=== PATIENT | female | born 1960 | race Caucasian/White ===

== ENCOUNTER 2017-02-05 15:38 | Emergency (ER) | payer MEDICARE, OTHER ==
[~2017-02-05] VITALS: Ht 167.6 cm; Wt 84.8 kg
[~2017-02-05 15:38] MED LIST: ATENOLOL100 MG PO; CETIRIZINE HCL10 MG PO; CHLORTHALIDONE25 MG PO; CLARITIN10 MG PO; FLUTICASONE PRO16 GM NAS; HYDROXYZINE PAM50 MG PO; IPRATROPIU0.2 MG/1 M INH; KLOR-CON M1010 MEQ PO; LAMOTRIGINE150 MG PO; METHYLPHENIDATE20 MG PO; OMEPRAZOLE20 MG PO; ONDANSETRON HCL4 MG PO; PROAIR HFA8.5 GM INH; TRAMADOL HCL50 MG PO
[2017-02-05] MEDS ORDERED: FAMCICLOVIR500 MG PO (16:01)
[2017-02-05] MEDS ORDERED: METHYLPREDNISOLO4 M1 PO (16:01)
== END 2017-02-05 16:10 | disposition home or self-care (01) ==
LOC: ED 15:38
DX: G51.0 Bell's palsy (principal); F31.9 Bipolar disorder, unspecified; F20.9 Schizophrenia, unspecified; F17.200 Nicotine dependence, unspecified, uncomplicated; Z90.710 Acquired absence of both cervix and uterus; Z90.49 Acquired absence of other specified parts of digestive tract; Z88.0 Allergy status to penicillin; Z88.6 Allergy status to analgesic agent; Z79.899 Other long term (current) drug therapy; Z79.51 Long term (current) use of inhaled steroids; Z79.52 Long term (current) use of systemic steroids
CPT/HCPCS: 99283

== ENCOUNTER 2017-04-02 07:30 | Emergency (ER) | payer MEDICARE, OTHER ==
[~2017-04-02] VITALS: Ht 167.6 cm; Wt 84.8 kg
[~2017-04-02 07:30] MED LIST changes: +FAMCICLOVIR500 MG PO; +METHYLPREDNISOLO4 M1 PO
== END 2017-04-02 10:07 | disposition home or self-care (01) ==
LOC: ED 07:30
DX: K64.4 Residual hemorrhoidal skin tags (principal); F41.9 Anxiety disorder, unspecified; F31.9 Bipolar disorder, unspecified; F20.9 Schizophrenia, unspecified; F17.200 Nicotine dependence, unspecified, uncomplicated; Z90.710 Acquired absence of both cervix and uterus; Z90.49 Acquired absence of other specified parts of digestive tract; Z98.890 Other specified postprocedural states; Z88.6 Allergy status to analgesic agent; Z88.0 Allergy status to penicillin; Z86.19 Personal history of other infectious and parasitic diseases; Z79.899 Other long term (current) drug therapy
CPT/HCPCS: 99284

== ENCOUNTER 2019-01-18 00:28 | Inpatient (IN) | payer MEDICARE, OTHER ==
[~2019-01-18] VITALS: Ht 167.6 cm; Wt 71.4 kg
--- OUTSIDE RECORDS SUMMARY | 2019-01-18 00:32 | XMS ---
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 ECaitlyn VISIT COUNT (12 MO.) [address] [facility] TOTAL 1 NOTE: Visits indicate total known visits. ED/UCC VISIT TRACKING (12 MO.) 01/18/2019 00:[address] [facility] [place] TYPE: Emergency COMPLAINT: - DIFFICULTY BREATHING INPATIENT VISIT TRACKING (12 MO.) No inpatient visits to display in this time frame [id number]
--- NOTE | 2019-01-18 05:00 | NUR ---
pt ARRIVED ON FLOOR. pt RESTING. FELL ASLEEP MULTIPLE TIMES DURING ASSESSMENT, REPORTED NOT SLEEPING MUCH PRIOR. REPORTED SOB THAT WAS IMPROVED FROM WHEN SHE CAME IN. pt STATED "I CAN FEEL NOT HAVING A DRINK, THIS IS PRETTY LONG TO GO WITHOUT ALCOHOL" LAST DRINK 2200. COMPLAINED OF PAIN POINTING TO ABD. STATED "IT'S FROM THE COUGHING" RATED 8/10. EDUCATED ON USING CALL LIGHT. IVF AND IV ABX INFUSING (SEE MAR). CALL LIGHT WITHIN REACH.
--- NOTE | 2019-01-18 05:10 | NUR ---
PT ARRIVED TO THE FLOOR AT 0443 VIA STRETCHER. VS STABLE AND PT IS ON 2.5 LNC. SHE IS TUCKED IN AND ORIENTED TO THE ROOM. TELE IS IN PLACE. HISTORY WAS REVIEWED WITH PT. SHE SMOKES AND WOULD LIKE NICOTINE, WILL ENTER NIO ORDERS. PT HAS FRESH WATER AT BEDSIDE AND PT DENIES FURTHER NEEDS AT THIS TIME. CALL LIGHT IS WITHIN REACH.
[2019-01-18] MEDS ORDERED: K-TAB ER20 MEQ PO (05:37)
--- NOTE | 2019-01-18 06:21 | NUR ---
pt RECENTLY ADMITTED TO FLOOR. pt RESTING, COMPLAINS OF PAIN TO ABD "FROM MY COUGHING." STATED "THIS IS PRETTY LONG TO GO WITHOUT ALCOHOL" LAST DRINK 219901/17/19. IVF INFUSING, IV ABX. USES CANE "OCCASSIONALLY" AT BASELINE. REPORTS SOB "IT'S MUCH BETTER THAN WHEN I CAME IN" 2L O2 VIA NC. HAS NOT USED CALL LIGHT.
--- NOTE | 2019-01-18 07:32 | NUR ---
PT REUESTED NO BEDSIDE REPORT PREFERRING TO SLEEP. SHE IS RESTING EYES CLOSED [address] BREATHING EVEN AND UNLABORED. IV INFUSING, CALL LIGHT AND NEEDED ITEMS AT BEDSIDE
--- NOTE | 2019-01-18 10:05 | NUR ---
PATIENT SITTING UP IN BED TAKING BREAKFAST. RN IN ROOM. VITAL SIGNS AND I&O DONE. CALL LIGHT WITHIN REACH. NO OTHER NEEDS AT THIS TIME
--- NOTE | 2019-01-18 10:21 | NUR ---
PT AWAKENED FOR MORNING MEAL EATS 100%. COOPERATIVE AND FRIENDLY. ETOH CONCERNS ADRESSED WITH DOCTOR. REFUSES UP TO THE CHAIR. CALL LIGHT AT BEDSIDE WITH OTHER NEEDED ITEMS
--- NOTE | 2019-01-18 10:58 | NUR ---
Provided pt with beer per doc order. Pt reports she "feels shaky", and drinks "alot of alcohol". Fine shaking noted in hands. Dr. Lopez aware. Will continue to monitor pt.
--- NOTE | 2019-01-18 11:09 | NUR ---
IN TO DO PTS INITIAL CASE MANAGEMENT ASSESSMENT. PT ABLE TO ANSWER ALL QUESTIONS. DENIES NEEDS.
--- NOTE | 2019-01-18 11:14 | NUR ---
DR SOTO IN TO ASSESS PT, SHE IS ALERT AND COOPERATIVE. ETOH ISSUE DISCUSSED BEER PROVIDED. PT IS DRINKING AT THIS TIME, NICOTINE PATCHES IN PLACE. SHE STATES THIS HELPS. PT IS ALERT AND ORIENTED, HANDS ARE SHAKING SLIGHTLY, NO S/S OF DISTRESS. PT DENIES FURTHER NEEDS
--- NOTE | 2019-01-18 13:10 | NUR ---
PATIENT RESTING IN BED. PATIENT GOES TO USE BATHROOM. STAND BY ASSIST. PATIENT BACKS TO BED. CALL LIGHT WITHIN REACH. NO OTHER NEEDS AT THIS TIME
--- NOTE | 2019-01-18 13:55 | NUR ---
PATIENT RESTING IN BED. VITAL SIGNS AND I&O DONE. CALL LIGHT WITHIN REACH. NO OTHER NEEDS AT THIS TIME
--- NOTE | 2019-01-18 14:04 | NUR ---
PT HAD COMPANY FOR MOST OF THE LATE MORNING. SHE HAS HAD 4 BEERS, VERY LITTLE TREMOR AT THIS TIME. C/O HEADACHE TYLENOL GIVEN. DRY COUGH CONTINUES NO PRODUCTION. BREATHING EVEN AND UNLABORED [address] 2LPM
--- NOTE | 2019-01-18 14:09 | EKG ---
[facility] [address] [place], [place] [address] Signed Normal sinus rhythm Rightward axis Nonspecific ST and T wave abnormality Abnormal ECG No previous ECGs available Confirmed by YULISA SOTO DO ([id number]) on 01/18/2019 2:09:12 PM Electronically Signed By: YULISA SOTO DO 01/18/19 1409 PATIENT NAME: ALESSIO HOLLOWAY VONNIE Electrocardiogram DATE OF : 64 PHYSICIAN: YULISA SOTO DO REPORT #: [id number] REPORT IS CONFIDENTIAL AND NOT TO BE RELEASED WITHOUT AUTHORIZATION
[2019-01-18] MEDS ORDERED: ADVAIR 250-501 EACH INH (15:31)
[2019-01-18] MEDS ORDERED: NORVASC10 MG PO (15:32)
--- NOTE | 2019-01-18 16:08 | NUR ---
PT IN ROOM COUGHING AT THIS TIME. PER ICU, PT'S HEART RATE PER TELE INCREASED TO MID 150/BPM. PT REPORTS INCREASED COUGHING FOR LAST SEVERAL MINUTES. PENDING DR. SOTO'S ORDER FOR COUGH SUPPRESSANT. VS TAKED; 155/54, P104, M77, 02 SAT LEVEL 95% ON RA.
--- NOTE | 2019-01-18 16:16 | NUR ---
PT COUGHING AND COUGHING, C/O HEAD AND STOMACHE PAIN. DR SOTO IN TO CHECK ON HER, WRITES FOR TESSOLON PEARS AND IBUPROFEN. PT HANDS SHAKEY AGAIN, SHE REPORTS SWEATING, APPEARS A LITTLE AGITATED. COOL CLOTH PROVIDED, BEER FROM KITCHEN, PEARLS AND IBUPROFEN GIVEN. DISCUSSED S/S OF DT'S SHE STATES SHE HAS BEEN THROUGH THEM 5 OR 6 TIMES ABLE TO VERBALIZE S/S AGREES TO NOTIFY STAFF OF NEEDS
--- NOTE | 2019-01-18 16:34 | NUR ---
Dr. Lopez aware of pt's heart rate increase to the mid 150bpm per tele. No new orders. Pt's heart rate immediately returned to 109-115bpm range. Will continue to monitor.
--- NOTE | 2019-01-18 19:04 | NUR ---
IN ROOM FOR REPORT, PT IS AWAKE IN BED. SHE DENIES NEEDS AT THIS TIME. CALL LIGHT IS WITHIN REACH.
--- NOTE | 2019-01-18 19:18 | NUR ---
CHARGE NURSE REPORT RECEIVED FROM DORON. PT IN BED, NO NEEDS AT THIS TIME.
--- NOTE | 2019-01-18 20:27 | NUR ---
IN ROOM TO ADMINISTER MEDICATIONS AND ASSESS PT. SHE REPORTS 8/10 HEADACHE AT THIS TIME. CIWA SCORE IS 13 AND SHE HAS A BEER AT BEDSIDE. SHE HAS EX WHEEZES AND IS SITTING UP IN BED AT THIS TIME. SHE STATES SHE HAS SOME MUSCLE/SHOULDER PAIN WHICH IS WORSE WITH COUGHING. TYLENOL GIVEN FOR 8/10 HEADACHE. PT CONTINUES TO HAVE A DRY COUGH AND IS HAVING TROUBLE RELAXING. WILL TALK WITH DR SOTO ABOUT OTHER COUGH MEDICINE. PT DENIES FURTHER NEEDS. CALL LIGHT IS CLOSE.
--- NOTE | 2019-01-18 20:37 | NUR ---
SPOKE WITH DR SOTO ABOUT ADDING COUGH MEDICINE. VORBC AND ENTERED. HE WILL SPEAK WITH PT ABOUT CIWA AND ALCOHOL FOR THE NIGHT.
--- NOTE | 2019-01-18 21:37 | NUR ---
BRIELLE NORIEGA ADVISED THIS RN THAT PT IS FEELING MORE AGITATED. ASSESSED PT AND CIWA AT THIS TIME IS 17. ADMINISTERED 5MG ORAL VALIUM AND COUGH MEDS. PT DENIES FURTHER NEEDS AT THIS TIME WILL REASSESS IN 1 HOUR. CALL LIGHT IS CLOSE.
--- NOTE | 2019-01-18 22:25 | NUR ---
REASSESSED PT, VVS. CIWA SCORE IS DOWN. PT CONTINUES TO HAVE DRY COUGH. ADMINISTERED ANOTHER LOZENGE PER PT REQUEST. SHE DENIES FURTHER NEEDS AT THIS TIME. CALL LIGHT IS WITHIN REACH.
--- NOTE | 2019-01-18 23:45 | NUR ---
VS ENTERED AND CIWA COMPLETE. PT REPORTS HEADACHE HAS IMPROVED ALOT. CIWA IS AT 7 AT THIS TIME. SHE DENIES NEEDS. CALL LIGHT IS CLOSE.
--- NOTE | 2019-01-19 01:00 | NUR ---
CIWA COMPLETE. PT REQUIRED NEW IV START OLD ONE INFILTRATED. PT DENIES NEEDS AT THIS TIME. CALL LIGHT IS CLOSE.
--- NOTE | 2019-01-19 02:00 | NUR ---
PT'S HEADACHE IS 8/10 AND CIWA SCORE INCREASED TO 13 AGAIN. VALIUM ADMINISTERED ANLONG WITH ROBITUSSIN AND LOZENGES. PT DENIES FURTHER NEEDS AT THIS TIME. CALL LIGHT IS WITHIN REACH.
--- NOTE | 2019-01-19 03:00 | NUR ---
CIWA AND VS COMPLETE. VS STABLE. PT IS REPORTING A DECREASE IN SYMPTOMS. SHE DENIES NEEDS AT THIS TIME. CALL LIGHT IS WITHIN REACH.
--- NOTE | 2019-01-19 04:06 | NUR ---
PT'S VS HAVE BEEN STABLE ALL NIGHT. HER COUGH HAS BEEN KEEPING HER AWAKE. SHE IS RESTING AT THIS TIME WITH EYES CLOSED, RR IS EVEN AND NONLABORED. CIWA ASSESSED BUT HOLDING VS AT THIS TIME. CALL LIGHT IS CLOSE.
--- NOTE | 2019-01-19 06:10 | NUR ---
CIWA 0 AT THIS TIME. PT IS RESTING WITH EYES CLOSED, RR IS EVEN AND NONLABORED ON 2LNC. CALL LIGHT IS CLOSE.
--- NOTE | 2019-01-19 07:48 | NUR ---
Pt appears to be sleeping at this time, resp even and non labored. Personal supplies and call light within reach.
--- NOTE | 2019-01-19 09:16 | NUR ---
PATIENT SITTING UP IN BED. RN IN ROOM. VITAL SIGNS AND I&O DONE. PATIENT COMPLAIN ABOUT HER BREAKFAST. PATIENT'S BREAKFAST ORDERED AGAIN. CALL LIGHT WITHIN REACH. NO OTHER NEEDS AT THIS TIME
--- NOTE | 2019-01-19 10:53 | NUR ---
CEPACOL PO ADMIN FOR SORE THROAT.
--- NOTE | 2019-01-19 12:47 | NUR ---
PT SITTING UP IN BED WATCHING TV, RESP EVEN AND NON LABORED. PT REPORTS ONGOING HEADACHE THIS SHIFT. TYLENOL IN USE FOR THIS. CIWA ASSESSMENTS ONGOING. PT APPEARS TO HAVE LESS SHAKING TODAY COMPARED TO YESTERDAY. PT REPORTS SHE IS "DOING OK" TODAY. ENCOURAGED GOOD PO INTAKE AND PROPER DIET. PT RECEPTIVE TO PLAN OF CARE. NO NEEDS AT THIS TIME. ENCOURAGED PT TO CALL STAFF WHEN NEEDED.
--- NOTE | 2019-01-19 13:26 | NUR ---
PT SHAKING AND SWEATING. CIWA SCORE OF 10 AT THIS TIME. WILL ADMIN VALIUM PER PROTOCOL.
--- NOTE | 2019-01-19 13:28 | NUR ---
ADMIN VALIUM 10MG PO PER CIWA PROTOCOL. PT REPORTING HAVING A HARD TIME WITH ALCOHOL WITHDRAWAL. SEE PREVIOUS NOTE FOR FURTHER DETAILS.
--- NOTE | 2019-01-19 13:36 | NUR ---
PATIENT SITTING UP IN BED. VITAL SIGNS AND I&O DONE. CALL LIGHT WITHIN REACH. NO OTHER NEEDS AT THIS TIME
--- NOTE | 2019-01-19 14:38 | NUR ---
Pt states "doing well" at this time, no shaking noted at this time. Pt has friends at the bedside. VS are stable. Pt has no needs at this time. Personal supplies within reach.
--- NOTE | 2019-01-19 16:17 | NUR ---
Pt appears to be sleeping, eyes closed, resp even and non labored. No tremors noted. Pt appears very calm and relaxed. RR16 per min. Cough has calmed down.
--- NOTE | 2019-01-19 18:05 | NUR ---
PATIENT RESTING IN BED. VITAL SIGNS AND I&O DONE. CALL LIGHT WITHIN REACH. NO OTHER NEEDS AT THIS TIME
--- NOTE | 2019-01-19 19:00 | NUR ---
SHIFT REPORT RECEIVED FROM DAYSHIFT LEYLA SAL AT BEDSIDE. PT RESTING IN BED, DROWSY, BUT AWAKENS EASILY. REQUEST THROAT LOZENGE AT THIS TIME, WILL GIVE WITH EVENING MEDS. PT DENIES ADDITIONAL NEEDS, CALL LIGHT IN REACH.
--- NOTE | 2019-01-19 19:36 | NUR ---
ROUNDED CHARGE. PATIENT IS RESTING IN BED. PANKAJ RN IN ROOM AND SPEEDOMETER INSPECTOR IN ROOM TO ASSES PATIENT AND TAKE VITALS. PATIENT DENIES ANY COMMENTS, QUESTIONS, OR CONCERNS. NO NEEDS NOTED. CALL LIGHT IN REACH.
--- NOTE | 2019-01-19 19:45 | NUR ---
ASSESSMENT COMPLETE, VSS, PT ON RA, RR WNL. PT A/OX4. CIWA SCORE OF 9. CHIEF COMPLAINT OF HEADACHE, INTERMITTENT NAUSEA, AND MINIMAL AGITATION/TREMORS. PT DENIES WANT FOR NAUSEA MEDICATION. 10 MG PO VALIUM ADMINISTERED. PT SALINE LOCKED, IV SITE FLUSHED AND IS WNL. PRN THROAT LOZENGE AND PRN TYLENOL ADMINISTERED. NO ADDITIONAL NEEDS, CALL LIGHT IN REACH. ROOM DARK TO ENCOURAGE SLEEP.
--- NOTE | 2019-01-19 21:00 | NUR ---
PT RESTING IN BED, RR 20, 92% ON RA. NO DISTRESS NOTED. PT APPEARS COMFORTABLE. HEADACHE RESOLVED PER PT. VSS. NO NEEDS, CALL LIGHT IN REACH.
--- NOTE | 2019-01-19 23:00 | NUR ---
CIWA COMPLETE, RESULT OF 1 DUE TO REPORTS OF SWEATING, NON VISIBLE. PT DENIES ADDITIONAL NEEDS, UP SBA WITH HELP FROM BRIELLE MENDOZA.
--- NOTE | 2019-01-19 23:10 | NUR ---
V/S TAKEN AND RECORDED. ICE WATER, COLA AND COFFEE PROVIDED.
--- NOTE | 2019-01-20 00:10 | NUR ---
SCHEDULED NEB TREATMENT GIVEN BY THIS RN PER PT REQUEST. LUNG SOUNDS CLEAR, MINIMAL EXPIRATORY WHEEZES NOTED, O2 SAT 94% ON RA, HR 95, AFTER TREATMENT. COFFEE WITH HONEY PROVIDED PER PT REQUEST. NO ADDITIONAL NEEDS, CALL LIGHT IN REACH.
--- NOTE | 2019-01-20 01:15 | NUR ---
CIWA SCORE OF 8, 10 MG PO VALIUM ADMINISTERED. PRN TYLENOL ALSO GIVEN FOR PAIN R/T HEADACHE. VSS. NO ADDITIONAL NEEDS, CALL LIGHT IN REACH.
--- NOTE | 2019-01-20 02:30 | NUR ---
AT 1999, VALIUM PULLED. PYXIS ERROR CAUSED TWO 10MG/2ML VALIUM TO BE PULLED, NOT ONE. THE RN CANCELLED THE SECOND VALIUM AND ONLY PULLED ONE TOTAL. HOWEVER, THE IV VALIUM WAS NOT GIVEN, BUT INSTEAD THE PO OPTION WAS PULLED AND GIVEN. THE IV VALIUM PULLED COULDN'T BE WASTED IN PYXIS BY WAS WASTED BY THIS RN IN CONTAINER, VERIFIED BY PATTERN DUPLICATOR. DISCREPANCY WAS CAUSED, BUT RESOLVED IN PYXIS BY THIS RN AND PATTERN DUPLICATOR. RETAIL KEY HOLDER AND PHARMACY AWARE.
--- NOTE | 2019-01-20 02:36 | NUR ---
PT RESTING IN BED, EYES OPEN AND WATCHING TLEVISION. CIWA SCORE OF 2, C/C AT THIS TIME IS HEADACHE AND MINIMAL SWEATING. RR WNL, NO DISTRESS NOTED. PT DENIES NEEDS AND STATES, "I FEEL BETTER NOW". CALL LIGHT IN REACH.
--- NOTE | 2019-01-20 03:34 | NUR ---
PT RESTING IN BED, EYES CLOSED. RR EVEN AND UNLABORED. NO VISIBLE TREMORS NOTED. PT APPEARS COMFORTABLE AT THIS TIME, CALL LIGHT IN REACH.
--- NOTE | 2019-01-20 04:30 | NUR ---
CIWA SCORE OF 1, DUE TO MINIMAL HEADACHE. PT WAS RESTING WITH EYES CLOSED WHEN THIS RN ENTERED ROOM. VSS, PT ON RA, RR WNL. NO NEEDS AT THIS TIME. CALL LIGHT IN REACH.
--- NOTE | 2019-01-20 05:38 | NUR ---
PT RESTING IN BED, AWAKE AND WATCHING TELEVISION. NO NEEDS, CALL LIGHT IN REACH.
--- NOTE | 2019-01-20 05:43 | NUR ---
PT SLEPT ON AND OFF THIS SHIFT. HIGHEST CIWA SCORE IN SHIFT WAS 9, BIGGEST COMPLAINTS INCLUDED HEADACHE, TREMORS, AND SWEATING. 10 MG PO VALIUM GIVEN X2 THIS SHIFT. VS REMAINED STABLE ALL NIGHT. PRN TYLENOL GIVEN FOR HEADACHE. A/OX4, USES CALL LIGHT APPROPERIATELY. REGULAR DIET, TOLERATING WELL. VOIDING QS. NO BM THIS SHIFT.
--- NOTE | 2019-01-20 06:47 | NUR ---
THIS RN IN ROOM TO COLLECT VS AND COMPLETE CIWA ASSESSMENT. PT RESTING IN BED, EYES CLOSED WHEN ENTERING ROOM. SCORE OF 4 DUE TO NAUSEA AND HEADACHE. PT DECLINES NAUSEA MEDICATION. NO ADDITIONAL NEEDS. CALL LIGHT IN REACH.
--- NOTE | 2019-01-20 07:35 | NUR ---
PT APPEARS TO BE SLEEPING, EYES CLOSED. RESP EVEN AND NON LABORED. NO NOTABLE DISTRESS. PERSONAL SUPPLIES AND CALL LIGHT WITHIN REACH. NO NEEDS.
--- NOTE | 2019-01-20 08:40 | NUR ---
PT SLEEPING AT THIS TIME, RESP EVEN AND NON LABORED. PT'S OXYGEN SAT LEVEL IS 92% ON RA.
--- NOTE | 2019-01-20 10:40 | NUR ---
PT REPORTS HAVING A HARD TIME THIS MORNING. RR20 BPM, RESP EVEN AND NON LABORED. PT APPEARS ANXIOUS, AGITATED AND HAS NOTABLE SWEATING AND TREMORS. PT STATES SHE "WANTS TO GO HOME". ENCOURAGED PT TO WAIT FOR PROVIDER TO SEE HER. ODETTE COMPLETED, PT GIVEN VALIUM 10MG PO AT THIS TIME. CALL LIGHT WITHIN REACH OF PT. NO NEEDS AT THIS TIME.
--- NOTE | 2019-01-20 11:01 | NUR ---
IV NO LONGER PATENT, NEW IV TO BE PLACED. SOLUMEDROL AND KCL IV TO BE STARTED ONCE A NEW IV IS PLACED.
--- NOTE | 2019-01-20 11:18 | NUR ---
PT SITTING UP IN BED, UPSET AND CRYING. PT REPORTS SHE'S UPSET D/T "WANTING TO GO HOME". ECNOURAGED PT TO BE POSITIVE, SHE IS HERE TO BE TREATED FOR HER MEDICAL PROBLEMS; PT RECEPTIVE TO THIS AFTER TALKING. CIWA; RR 20, EVEN AND NON LABORED. PT REPORTS ONGOING HEADACHE; TYLENOL IN USE. RECENT ADMIN OF VALIUM PER PROTOCOL. WILL CONTINUE TO MONITOR.
--- NOTE | 2019-01-20 12:04 | NUR ---
TESSALON TRINO 100MG PO FOR COUGH.
--- NOTE | 2019-01-20 12:24 | NUR ---
PT APPEARS TO BE LESS ANXIOUS. FAMILY AT BEDSIDE VISITING. RESP EVEN AND NON LABORED. KCL IV INFUSING AT THIS TIME. PT EATING LUNCH. NO NEEDS AT THIS TIME. PERSONAL SUPPLIES AND CALL LIGHT WITHIN REACH.
--- NOTE | 2019-01-20 14:41 | NUR ---
PT SITTING UP IN BED AT THIS TIME, RESP EVEN AND NON LABORED. PT APPEARS CALM, VERY MILD TREMORS, NO SWEATING NOTED. PT REPORTS "FEELING BETTER". RESP EVEN AND NON LABORED. PT HAS NO NEEDS AT THIS TIME. PERSONAL SUPPLIES AND CALL LIGHT WITHIN REACH.
--- NOTE | 2019-01-20 16:37 | NUR ---
IV KCL COMPLETE. PT AWAKE, A&OX3. NO NOTABLE TREMORS OR SWEATING AT THIS TIME. CEPACOL ADMIN FOR SORE THROAT. RESP EVEN AND NON LABORED.
--- NOTE | 2019-01-20 19:05 | NUR ---
BEDSIDE REPORT RECEIVED FROM LEYLA SAL. PT RESTING IN BED WITH EYES CLOSED. BREATHING EQUAL AND UNLABORED. SPO2 95% ON WALL PULSE OXIMETRY. LIGHTS OFF IN ROOM.
--- NOTE | 2019-01-20 20:29 | NUR ---
REGULAR COLA AND ICE PROVIDED. PATIENT REQUESTED SOMETHING FOR COUGHING AND SHAKEY. PRIMARY RN NOTIFIED.
--- NOTE | 2019-01-20 21:11 | NUR ---
CALL LIGHT ANSWERED, PT C/O ANXIETY, TREMORS, RENDON. CIWA SCORE 10. PRN VALIUM ADMINISTERED PER ORDERS. ASSESSMENT COMPLETE. VSS. PRN TYLENOL ADMINISTERED FOR RENDON, PRN COUGH MEDICATION. PT RESTING IN BED. RT BASIA IN ROOM TO ADMINISTER SCHEDULED NEB TREATMENTS. WHEEZES HEARD THROUGHOUT ALL LOBES, DRY COUGH PRESENT. PT DENIES TOILETING NEEDS. PO FLUIDS PROVIDED. CALL LIGHT IN REACH. PT VERBALIZES UNDERSTANDING TO USE CALL LIGHT BEFORE GETTING OUT OF BED. ALERT AND ORIENTED X 4.
--- NOTE | 2019-01-20 21:48 | NUR ---
PT REQUESTED AND RECEIVED NICOTINE LOZENGE. ALL PERSONAL ITEMS PLACED WITHIN REACH.
--- NOTE | 2019-01-20 22:15 | NUR ---
FRUIT CUP GIVEN TO PT. SITTING IN BED. NO ADDITIONAL REQUESTS. CALL LIGHT IN REACH.
--- NOTE | 2019-01-20 23:51 | NUR ---
CHECKED ON PT. RESTING IN BED WITH EYES CLOSED. RR 18. BREATHING UNLABORED.
--- NOTE | 2019-01-21 01:00 | NUR ---
PT SLEEPING, AWAKENS TO VOICE. SBA TO RESTROOM FOR VOID AND BACK TO BED. CIWA SCORE 9. VSS. ASSESSMENT COMPLETE. SCHEDULED MEDICATION AND PRN VALIUM ADMINISTERED, SEE EMAR. CALL LIGHT IN REACH.
--- NOTE | 2019-01-21 03:20 | NUR ---
CHECKED ON PT. RESTING IN BED WITH EYES CLOSED. BREATHING EQUAL AND UNLABORED.
--- NOTE | 2019-01-21 04:45 | NUR ---
PT SLEEPING. AWAKENS TO VOICE. VSS. CIWA 8, PRN VALIUM ADMINISTERED PER EMAR. PT "IRRITATED", DIAPHORETIC, C/O 8/10 RENDON. PRN TYLENOL ADMINISTERED. DENIES TOILETING NEEDS. ICE WATER PROVIDED. CALL LIGHT IN REACH.
--- NOTE | 2019-01-21 05:51 | NUR ---
PT RESTED WELL THIS SHIFT. SBA TO RESTROOM FOR QS VOIDS. USING CALL LIGHT APPROPRIATELY. C/O RENDON THROUGHOUT SHIFT, PRN TYLENOL ADMINISTERED. CIWA ASSESSMENTS Q4H. VSS. IV SALINE LOCKED.
--- NOTE | 2019-01-21 07:11 | NUR ---
REPORT RECEIVED. FROM DOROTHEA MAYER. PT RESTING WITH EYE CLOSED. RESPIRATIONS EVEN AND UNLABORED. CALL LIGHT WITHIN REACH.
--- NOTE | 2019-01-21 07:56 | NUR ---
MORNING ASSESSMENT AND MEDICATION DUE. PT CALL LIGHT ON. SBA UP TO RESTROOM. PT REPROTS HEADACHE, NAUSEA, TREMORS NOTED. PT STATES "I AM REALLY IRRITABLE AND I HAVE A HEADACHE." CIWA SCORE = 9. MEDICATION GIVEN PER MD ORDER. SBA UP TO CHAIR. PT BEGINS COUGHING AND HAS TROUBLE STOPPING. WHEEZES NOTED THROUGHOUT LUNGS. CEPACOL LOSENGE GIVEN WITH GOOD RESULTS. MEDICATIONS GIVEN. PT EATING BREAKFAST. NO ADDITIONAL REQUESTS OR COMPLAINTS. CALL LIGHT WITHIN REACH.
--- NOTE | 2019-01-21 10:35 | NUR ---
THIS RN TO ROOM TO CHECK ON PT. PT SITTING UP IN BED TALKING ON PHONE. PT CONTINUES TO REPORT HEADACHE. PT DENIES NAUSEA. NO TREMBLING NOTED. FLU VACCINE GIVEN. MEDICATION GIVEN. COFFEE REFILLED PER PT REQUEST. NO ADDITIONAL REQUESTS OR COMPLAINTS AT THIS TIME. CALL LIGHT WITHIN REACH.
[2019-01-21] MEDS ORDERED: DOXYCYCLINE HY100 MG PO (11:47)
[2019-01-21] MEDS ORDERED: NICOTINE PATCH1 EAC1 TD (11:47)
[2019-01-21] MEDS ORDERED: DELTASONE20 MG PO (11:50)
--- NOTE | 2019-01-21 11:52 | NUR ---
MD TO BEDSIDE FOR ROUNDS. NOON ASSESSMENT DONE. PT CONTINUES TO BE WHEEZY AND COUGHING. MEDICATION GIVEN. SMOKING CESEATION AND ALCOHOL WITHDRAWL EDUCATION DONE. PT VERBALIZES UNDERSTANDING AND WANTS TO SIGN UP FOR SMOKING CESEATION HOTLINE. PAPERWORK COMPLETED. PT CONTINUEST O REPROT 11/20 HEADACHE. CIWA SCORE = 6, NO MEDICATION NEEDED AT THIS TIME. PT UP TO DRESS SELF. ANTICIPATING DISCHARGE, CALL LIGHT WITHIN REACH.
--- NOTE | 2019-01-21 12:24 | NUR ---
PT APPEARS TO BE RESTING, AWAKENS EASILY TO MY VOICE. NOTICED SLIGHT TREMORS IN PT SHE SAT UP IN BED. SHE SEEMED PLEASANT, MENTIONED THAT SHE HOPES TO BE DC'D TODAY. PT ON RA, APPEARS TO BREATH UNLABORED AT THIS MOMENT. SHE ALSO THANKED ME FOR COMING IN. EXTENDED A BLESSING,WILL FOLLOW NEEDED
--- NOTE | 2019-01-21 12:46 | NUR ---
PT READY FOR DISCHRAGE. PT HAS SPOKEN WITH PHARMACIST REGARDING MEDICATIONS AND STATES HER QUESTIONS HAVE BEEN ANSWERED. VITALS TAKEN. PIV DC'D PER PROTOCOL. DISCHARGE INSTRUCTIONS REVIEWED WITH PT. PT VERBALIZES UNDERSTANDING AND STATES HER QUESTIONS HAVE BEEN ANSWERED. PT TRANSFERES SELF TO WHEELCHAIR. ALL PERSONELL BELONGINS WITH PT. PT STATES SHE HAS NO ADDITIONAL QUESTIONS, CONCERNS, OR REQUESTS. PT WHEELED FROM MED SURG.
== END 2019-01-21 12:50 | disposition home or self-care (01) | DRG 191 ==
LOC: ED 00:28 → MS 00:30
PROVIDERS: ADMIT Student in an Organized Health Care Education/Training Program
DX: J44.1 Chronic obstructive pulmonary disease with (acute) exacerbation (principal); E87.1 Hypo-osmolality and hyponatremia; F10.239 Alcohol dependence with withdrawal, unspecified; E87.6 Hypokalemia; J01.11 Acute recurrent frontal sinusitis; B96.89 Other specified bacterial agents as the cause of diseases classified elsewhere; F17.210 Nicotine dependence, cigarettes, uncomplicated; K21.9 Gastro-esophageal reflux disease without esophagitis; I10 Essential (primary) hypertension; M54.9 Dorsalgia, unspecified; G89.29 Other chronic pain; F15.10 Other stimulant abuse, uncomplicated; Z66 Do not resuscitate; Z79.51 Long term (current) use of inhaled steroids; Z79.899 Other long term (current) drug therapy; Z88.0 Allergy status to penicillin; Z88.8 Allergy status to other drugs, medicaments and biological substances
CPT/HCPCS: 36415; 71045; 80048; 80053; 83735; 83880; 84100; 84132; 84484; 85025; 86703; 90688; 93005; 93010; 94640; 94664; 94667; 94668; 94760; 96374; 96375; 97116; 97162; 99285-25; 99406; J0456; J1650; J2405; J2930; J3475; J3480; J7030; J7060

== ENCOUNTER 2019-05-04 16:06 | Emergency (ER) | payer MEDICARE, OTHER ==
[~2019-05-04] VITALS: Ht 167.6 cm; Wt 72.8 kg
[~2019-05-04 16:06] MED LIST changes: +ADVAIR 250-501 EACH INH; +DELTASONE20 MG PO; +DOXYCYCLINE HY100 MG PO; +K-TAB ER20 MEQ PO; +NICOTINE PATCH1 EAC1 TD; +NORVASC10 MG PO
--- OUTSIDE RECORDS SUMMARY | 2019-05-04 16:08 | XMS ---
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 ECaitlyn VISIT COUNT (12 MO.) [address] [facility] TOTAL 2 NOTE: Visits indicate total known visits. ED/UCC VISIT TRACKING (12 MO.) 05/04/2019 16:06 [facility] TYPE: Emergency COMPLAINT: - FALL, ALTERED LOC 01/18/2019 00:29 [facility] TYPE: Emergency COMPLAINT: - DIFFICULTY BREATHING INPATIENT VISIT TRACKING (12 MO.) 01/18/2019 09:57 [facility] TYPE: [facility] COMPLAINT: - ACUTE EXACERBATION COPD DIAGNOSES: - Hypokalemia - Alcohol dependence with withdrawal, unspecified - Ot bacterial agents as the cause of diseases classd elswhr - Allergy status to penicillin - Other stimulant abuse, uncomplicated - Acute recurrent frontal sinusitis - Allergy status to oth drug/meds/biol subst status - Do not resuscitate - Do not resuscitate - Hypokalemia - Gastro-esophageal reflux disease without esophagitis - Acute recurrent frontal sinusitis - Chronic obstructive pulmonary disease w (acute) exacerbation - Dorsalgia, unspecified - manager terminal (current) use of inhaled steroids - Nicotine dependence, cigarettes, uncomplicated - Hypo-osmolality and hyponatremia - Other fpc (current) drug therapy - Encounter for immunization - Other chronic pain - Nicotine dependence, cigarettes, uncomplicated - Hypo-osmolality and hyponatremia - Essential (primary) hypertension - Allergy status to penicillin - Alcohol dependence with withdrawal, unspecified - Oth bacterial agents as the cause of diseases classd elswhr - Allergy status to oth drug/meds/biol subst status - manager terminal (current) use of inhaled steroids - Gastro-esophageal reflux disease without esophagitis - Dorsalgia, unspecified - Other chronic pain - Other oil heaterman (current) drug therapy - Essential (primary) hypertension - Other stimulant abuse, uncomplicated [email or web address]
--- NOTE | 2019-05-05 08:02 | EKG ---
[facility] [address] [place] [address] Signed Sinus tachycardia with frequent premature ventricular complexes Left posterior fascicular block Nonspecific T wave abnormality Abnormal ECG Confirmed by KT ROWLAND MD ([id number]) on 05/05/2019 8:02:27 AM Electronically Signed By: KT ROWLAND MD 05/05/19 0802 PATIENT NAME: ALESSIO HOLLOWAY VONNIE Electrocardiogram DATE OF : 64 PHYSICIAN: KT ROWLAND MD REPORT #: [id number] REPORT IS CONFIDENTIAL AND NOT TO BE RELEASED WITHOUT AUTHORIZATION
== END 2019-05-04 18:34 | disposition home or self-care (01) ==
LOC: ED 16:06
DX: S02.2XXA Fracture of nasal bones, initial encounter for closed fracture (principal); F10.129 Alcohol abuse with intoxication, unspecified; W19.XXXA Unspecified fall, initial encounter; F31.9 Bipolar disorder, unspecified; F17.200 Nicotine dependence, unspecified, uncomplicated; Z88.6 Allergy status to analgesic agent; Z88.0 Allergy status to penicillin; Z79.899 Other long term (current) drug therapy
CPT/HCPCS: 70450; 70486; 72125; 80053; 82140; 84484; 85025; 85610; 93005; 93010; 96365; 96375; 99284-25; G0480; J2405; J3411; J7030

== ENCOUNTER 2020-05-31 10:06 | Emergency (ER) | payer MEDICARE, OTHER ==
[~2020-05-31] VITALS: Ht 167.6 cm; Wt 72.8 kg
[2020-05-31] MEDS ORDERED: AMLODIPINE BESY10 MG PO (10:16)
[2020-05-31] MEDS ORDERED: HYDROCHLOROTHIA25 MG PO (10:16)
[2020-05-31] MEDS ORDERED: VENTOLIN HFA18 GM INH (12:53)
[2020-05-31] MEDS ORDERED: ALBUTEROL2.5 MG/3 M INH (12:54)
[2020-06-01] MEDS ORDERED: PANTOPRAZOLE SO40 MG PO (17:08)
[2020-06-01] MEDS ORDERED: ADVAIR 500-501 EACH INH (17:08)
[2020-06-01] MEDS ORDERED: POTASSIUM CHLO20 ME1 PO (21:34)
== END 2020-05-31 14:36 | disposition home or self-care (01) ==
LOC: ED 10:06
DX: F10.239 Alcohol dependence with withdrawal, unspecified (principal); Y90.2 Blood alcohol level of 40-59 mg/100 ml; Z20.822 Contact with and (suspected) exposure to COVID-19; F17.200 Nicotine dependence, unspecified, uncomplicated; Z88.8 Allergy status to other drugs, medicaments and biological substances; Z88.0 Allergy status to penicillin
CPT/HCPCS: 80053; 83690; 85025; 96374; 96375; 99285-25; C9803; J2060; J2405; J3411; J7030; U0003

== ENCOUNTER 2020-06-01 16:52 | Emergency (ER) | payer MEDICARE, OTHER ==
[~2020-06-01] VITALS: Ht 167.6 cm; Wt 72.8 kg
[~2020-06-01 16:52] MED LIST changes: +ALBUTEROL2.5 MG/3 M INH; +AMLODIPINE BESY10 MG PO; +HYDROCHLOROTHIA25 MG PO; +VENTOLIN HFA18 GM INH
--- OUTSIDE RECORDS SUMMARY | 2020-06-01 16:56 | XMS ---
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 Janay VISIT COUNT (12 MO.) 2 [facility] TOTAL 2 NOTE: Visits indicate total known visits. ED/UCC VISIT TRACKING (12 MO.) 06/01/2020 16:53 [facility] [place] TYPE: Emergency COMPLAINT: - BOWEL PROBLEM 05/31/2020 10:07 [facility] [place] TYPE: Emergency COMPLAINT: - POSSIBLE ALCOHOL WITHDRAWL INPATIENT VISIT TRACKING (12 MO.) No inpatient visits to display in this time frame [id number]
[2020-06-01] MEDS ORDERED: ADVAIR 500-501 EACH INH (17:08)
[2020-06-01] MEDS ORDERED: PANTOPRAZOLE SO40 MG PO (17:08)
[2020-06-01] MEDS ORDERED: POTASSIUM CHLO20 ME1 PO (21:34)
== END 2020-06-01 22:20 | disposition home or self-care (01) ==
LOC: ED 16:52
DX: E87.6 Hypokalemia (principal); F17.200 Nicotine dependence, unspecified, uncomplicated; Z88.6 Allergy status to analgesic agent; Z88.0 Allergy status to penicillin; Z79.899 Other long term (current) drug therapy
CPT/HCPCS: 80053; 83690; 85025; 85610; 85730; 99284; J7030

== ENCOUNTER 2022-07-16 13:06 | Emergency (ER) | payer MEDICARE, OTHER ==
[~2022-07-16] VITALS: Ht 167.6 cm; Wt 72.6 kg
[~2022-07-16 13:06] MED LIST changes: +ADVAIR 500-501 EACH INH; +PANTOPRAZOLE SO40 MG PO; +POTASSIUM CHLO20 ME1 PO
[2022-07-16] MEDS ORDERED: AZITHROMYCIN500 MG PO (14:29)
[2022-07-16] MEDS ORDERED: SPIRIVA18 MCG INH (14:29)
[2022-07-16] MEDS ORDERED: NALTREXONE HCL50 MG PO (14:30)
[2022-07-16] MEDS ORDERED: SERTRALINE HCL50 MG PO (14:30)
[2022-07-16] MEDS ORDERED: POTASSIUM CHLO10 ME2 PO (14:31)
[2022-07-16] MEDS ORDERED: K-TAB ER20 MEQ PO (19:12)
[2022-07-16] MEDS ORDERED: PREDNISONE20 MG PO (19:12)
[2022-07-16] MEDS ORDERED: ONDANSETRON ODT8 MG PO (19:12)
[2022-07-16] MEDS ORDERED: CHLORDIAZEPOXID25 MG PO (19:12)
== END 2022-07-16 20:00 | disposition home or self-care (01) ==
LOC: ED 13:06
DX: F10.239 Alcohol dependence with withdrawal, unspecified (principal); J44.1 Chronic obstructive pulmonary disease with (acute) exacerbation; E87.6 Hypokalemia; F17.200 Nicotine dependence, unspecified, uncomplicated; Z88.6 Allergy status to analgesic agent; Z88.0 Allergy status to penicillin; Z79.899 Other long term (current) drug therapy
CPT/HCPCS: 36415; 71045; 80053; 83690; 85025; 94640; 96365; 96366; 96367; 96375; 99285-25; A9270; G0480; J2060; J2405; J3411; J3480; J7030; J7040; J7060; J7512

== ENCOUNTER 2022-08-07 18:56 | Inpatient (IN) | payer MEDICARE, OTHER ==
[~2022-08-07] VITALS: Ht 167.6 cm; Wt 77.5 kg
[~2022-08-07 18:56] MED LIST changes: +AZITHROMYCIN500 MG PO; +CHLORDIAZEPOXID25 MG PO; +NALTREXONE HCL50 MG PO; +ONDANSETRON ODT8 MG PO; +POTASSIUM CHLO10 ME2 PO; +PREDNISONE20 MG PO; +SERTRALINE HCL50 MG PO; +SPIRIVA18 MCG INH
--- OUTSIDE RECORDS SUMMARY | 2022-08-07 19:00 | XMS ---
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 E.Feliciano. VISIT COUNT (12 MO.) 2 [facility] TOTAL 2 NOTE: Visits indicate total known visits. ED/UCC VISIT TRACKING (12 MO.) 08/07/2022 18:57 [facility] TYPE: Emergency COMPLAINT: - SOB 07/16/2022 13:06 [facility] [place] TYPE: Emergency COMPLAINT: - WEAKNESS DIAGNOSES: - Alcohol dependence with withdrawal, unspecified - Chronic obstructive pulmonary disease with (acute) exacerbation - Allergy status to analgesic agent - Allergy status to penicillin - Hypokalemia - Nicotine dependence, unspecified, uncomplicated - Other assisted (current) drug therapy INPATIENT VISIT TRACKING (12 MO.) No inpatient visits to display in this time frame [email or web address]
[2022-08-08] MEDS ORDERED: ADVAIR 500-501 EACH INH (09:22)
[2022-08-08] MEDS ORDERED: VENTOLIN HFA18 GM INH (09:25)
[2022-08-08] MEDS ORDERED: ADVAIR 250-501 EACH INH (09:27)
[2022-08-08] MEDS ORDERED: AZITHROMYCIN500 MG PO (16:59)
--- NOTE | 2022-08-08 18:53 | EKG ---
[facility] [address] [place] [address] Signed Sinus rhythm with occasional premature ventricular complexes Right axis deviation Pulmonary disease pattern Abnormal ECG When compared with ECG of 07-AUG-2022 19:21, (Unconfirmed) Sinus rhythm has replaced Junctional rhythm Confirmed by KT ROWLAND MD ([id number]) on 08/08/2022 6:53:23 PM Electronically Signed By: KT ROWLAND MD 08/08/221852 PATIENT NAME: ALESSIO HOLLOWAY VONNIE Electrocardiogram DATE OF : 64 PHYSICIAN: KT ROWLAND MD REPORT #: [id number] REPORT IS CONFIDENTIAL AND NOT TO BE RELEASED WITHOUT AUTHORIZATION
--- NOTE | 2022-08-08 18:53 | EKG ---
[facility] [address] [place] [address] Signed Accelerated Junctional rhythm Right axis deviation Abnormal ECG When compared with ECG of 04-MAY-2019 16:50, Junctional rhythm has replaced Sinus rhythm Nonspecific T wave abnormality, improved in Anterolateral leads Confirmed by KT ROWLAND MD ([id number]) on 08/08/2022 6:53:02 PM Electronically Signed By: KT ROWLAND MD 08/08/221852 PATIENT NAME: ALESSIO HOLLOWAY VONNIE Electrocardiogram DATE OF : 64 PHYSICIAN: KT ROWLAND MD REPORT #: [id number] REPORT IS CONFIDENTIAL AND NOT TO BE RELEASED WITHOUT AUTHORIZATION
[2022-08-10] MEDS ORDERED: NICOTINE LOZENGE4 MG BUCCAL (10:32)
[2022-08-10] MEDS ORDERED: CHLORDIAZEPOXID25 MG PO (10:35)
[2022-08-10] MEDS ORDERED: ALBUTEROL2.5 MG/3 M INH (10:36)
[2022-08-10] MEDS ORDERED: PREDNISONE10 MG PO (10:38)
[2022-08-10] MEDS ORDERED: NEBULIZER UNIT XX (10:42)
== END 2022-08-10 12:50 | disposition home or self-care (01) | DRG 191 ==
LOC: ED 18:56 → CCU 18:58
PROVIDERS: ADMIT Internal Medicine; ATTEND Internal Medicine
PROC: HZ2ZZZZ Detoxification Services for Substance Abuse Treatment (ICD-10-PCS; principal; 2022-08-08)
DX: J44.1 Chronic obstructive pulmonary disease with (acute) exacerbation (principal); F10.239 Alcohol dependence with withdrawal, unspecified; Z20.822 Contact with and (suspected) exposure to COVID-19; I10 Essential (primary) hypertension; K21.9 Gastro-esophageal reflux disease without esophagitis; F43.21 Adjustment disorder with depressed mood; F15.10 Other stimulant abuse, uncomplicated; K74.60 Unspecified cirrhosis of liver; Z86.19 Personal history of other infectious and parasitic diseases; Z71.6 Tobacco abuse counseling; Z90.49 Acquired absence of other specified parts of digestive tract; Z88.0 Allergy status to penicillin; Z88.8 Allergy status to other drugs, medicaments and biological substances; Z79.899 Other long term (current) drug therapy
CPT/HCPCS: 36415; 71045; 71260; 80048; 80053; 81001; 83036; 83735; 83880; 84484; 85025; 85379; 85610; 85730; 87502; 93005; 93010; 94640; 94664; 94760; 99406; A9270; C9803; G0480; J1100; J1650; J1815; J2060; J2405; J2920; J3360; J3411; J3475; J3480; J7030; Q9967; U0003

== ENCOUNTER 2023-06-28 03:13 | Emergency (ER) | payer MEDICARE, OTHER ==
[~2023-06-28] VITALS: Ht 162.6 cm; Wt 74.8 kg
[~2023-06-28 03:13] MED LIST changes: +NEBULIZER UNIT XX; +NICOTINE LOZENGE4 MG BUCCAL; +PREDNISONE10 MG PO
--- OUTSIDE RECORDS SUMMARY | 2023-06-28 03:16 | XMS ---
PreManage Notification: ALESSIO HOLLOWAY Security Side Gluer Events No recent Security Events currently on file CRITERIA MET - PDMP CARE PROVIDERS SukhWood Roller Inspector/Peoplesoft Developer 04/13/2023-Current PHONE: [phone] -Jerome DMD Dentist: Sheet Metal Journeyman Current PHONE: [phone] [place]: [facility] ([facility]) PHONE: [phone] ISMAEL RUBI Family [facility] Current PHONE: Unknown Carlos has no Care Guidelines for this patient. Janay VISIT COUNT (12 MO.) 4 [facility] TOTAL 4 NOTE: Visits indicate total known visits. ED/UCC VISIT TRACKING (12 MO.) 06/28/2023 03:14 [facility] TYPE: Emergency COMPLAINT: - ALCOHOL PROBLEM 01/21/2023 18:02 [facility] TYPE: Emergency COMPLAINT: - KIDNEYS PAIN DIAGNOSES: - Alcohol abuse, uncomplicated - Allergy status to other drugs, medicaments and biological substances - Allergy status to penicillin - Bipolar disorder, unspecified - Emphysema, unspecified - Nicotine dependence, unspecified, uncomplicated - Other care home (current) drug therapy 08/07/2022 18:57 [facility] TYPE: Emergency COMPLAINT: - SOB 07/16/2022 13:06 [facility] TYPE: Emergency COMPLAINT: - WEAKNESS DIAGNOSES: - Alcohol dependence with withdrawal, unspecified - Allergy status to analgesic agent - Allergy status to penicillin - Chronic obstructive pulmonary disease with (acute) exacerbation - Hypokalemia - Nicotine dependence, unspecified, uncomplicated - Other terminal manager (current) drug therapy INPATIENT VISIT TRACKING (12 MO.) 08/08/2022 11:[address] [facility] [place] TYPE: Critical Care COMPLAINT: - ACUTE EXACERBATION OF COPD DIAGNOSES: - Acquired absence of other specified parts of digestive tract - Acquired absence of other specified parts of digestive tract - Adjustment disorder with depressed mood - Adjustment disorder with depressed mood - Alcohol dependence with withdrawal, unspecified - Alcohol dependence with withdrawal, unspecified - Allergy status to other drugs, medicaments and biological substances - Allergy status to other drugs, medicaments and biological substances - Allergy status to penicillin - Allergy status to penicillin - Chronic obstructive pulmonary disease with (acute) exacerbation - Contact with and (suspected) exposure to COVID-19 - Contact with and (suspected) exposure to COVID-19 - Essential (primary) hypertension - Essential (primary) hypertension - Gastro-esophageal reflux disease without esophagitis - Gastro-esophageal reflux disease without esophagitis - Other terminal manager (current) drug therapy - Other terminal manager (current) drug therapy - Other stimulant abuse, uncomplicated - Other stimulant abuse, uncomplicated - Personal history of other infectious and parasitic diseases - Personal history of other infectious and parasitic diseases - Tobacco abuse counseling - Tobacco abuse counseling - Unspecified cirrhosis of liver - Unspecified cirrhosis of liver [email or web address]
[2023-06-28 03:35] LABS: BASOPHILS 0.9 % (0-2); EOSINOPHILS 1.6 % (0-6); HEMATOCRIT 45.6 % (35.0-50.0); LYMPHOCYTES 52.6 % (24-44); MCH 32.3 (27-36); MCHC 32.9 g/dl (30-36); MCV 98.1 fl (81-99); NEUTROPHILS 36.9 % (39-80); PLATELET COUNT 365 K/uL (140-440); RBC 4.65 M/ul (4.3-5.7); RDW 17.9 (10.5-15.0)
[2023-06-28] MEDS ORDERED: CHLORDIAZEPOXIDE 25 MG CAP PO ONE (03:45)
[2023-06-28 03:58] LABS: ACETAMINOPHEN 0 ug/mL (10-30); ALBUMIN 3.2 g/dL (3.4-5.0); ALBUMIN/GLOBULIN RATIO 0.74 (1.1-2.4); ALCOHOL, MEDICAL 321 ng/dL (<3); ALKALINE PHOSPHATASE 139 U/L (46-116); ALT (SGPT) 49 U/L (14-59); ANION GAP 18.4 (7-21); AST (SGOT) 88 U/L (15-37); BILIRUBIN, TOTAL 0.4 ng/dL (0.2-1.0); BUN/CREATININE RATIO 17.28 (6.0-28.6); CALCIUM 8.7 mg/dL (8.5-10.1); CARBON DIOXIDE 28 mmol/L (21-32); CHLORIDE 102 mmol/L (98-107); CREATININE, SERUM 0.81 mg/dL (0.55-1.02); GLOMERULAR FILTRATION RATE,EST 83 mL/min (>60); POTASSIUM 3.4 mmol/L (3.5-5.1); PROTEIN, TOTAL 7.5 g/dL (6.4-8.2); TSH, 3RD GENERATION 0.287 uIU/mL (0.358-3.740); UREA NITROGEN 14 mg/dL (7-18)
[2023-06-28] MEDS ORDERED: FOLIC ACID 1 MG/0.2 ML ML ONE (03:59)
[2023-06-28] MEDS ORDERED: THIAMINE HCL 200 MG/2 ML VIAL ONE (04:00)
[2023-06-28] MEDS ORDERED: LACTATED RINGER'S 1,000 ML IV ONE (04:00)
[2023-06-28] MEDS ORDERED: MULTIVITAMINS 10 ML VIAL ONE (04:00)
[2023-06-28] MEDS ORDERED: MULTIVITAMINS 10 ML,FOLIC ACID 1 MG,THIAMINE HCL 100 MG in SODIUM CHLORIDE 0.9% 1,000 ML IV SCH ×2 (04:00→04:15)
[2023-06-28 04:08] LABS: BILIRUBIN, URINE NEGATIVE (negative); BLOOD/HGB, URINE NEGATIVE (Negative); KETONE, URINE NEGATIVE (Negative); LEUK ESTERASE, URINE NEGATIVE (negative); NITRITE, URINE NEGATIVE (negative)
[2023-06-28 04:22] LABS: AMPHETAMINES, URINE POSITIVE (NEGATIVE); BARBITURATES, URINE NEGATIVE (NEGATIVE); BENZODIAZEPINE, URINE NEGATIVE (NEGATIVE); BUPRENORPHINE, URINE NEGATIVE (NEGATIVE); CANNABINOID, URINE NEGATIVE (NEGATIVE); COCAINE, URINE NEGATIVE (NEGATIVE); ECSTASY, URINE NEGATIVE (NEGATIVE); FENTANYL, URINE NEGATIVE (NEGATIVE); METHADONE, URINE NEGATIVE (NEGATIVE); OPIATES, URINE NEGATIVE (NEGATIVE); OXYCODONE, URINE NEGATIVE (NEGATIVE); PHENCYCLIDINE, URINE NEGATIVE (NEGATIVE)
[2023-06-28] MEDS ORDERED: ACETAMINOPHEN 500 MG TAB PO ONE (04:45)
[2023-06-28] MEDS ORDERED: CHLORDIAZEPOXID25 MG PO (05:39)
[2023-06-28 06:17] VITALS: BP 143/84
== END 2023-06-28 06:15 | disposition home or self-care (01) ==
LOC: ED 03:13
PROVIDERS: Internal Medicine
DX: F10.129 Alcohol abuse with intoxication, unspecified (principal); F15.10 Other stimulant abuse, uncomplicated; Y90.8 Blood alcohol level of 240 mg/100 ml or more; J43.9 Emphysema, unspecified; F20.9 Schizophrenia, unspecified; F31.9 Bipolar disorder, unspecified; F17.200 Nicotine dependence, unspecified, uncomplicated; Z79.899 Other long term (current) drug therapy; Z88.0 Allergy status to penicillin; Z88.6 Allergy status to analgesic agent
CPT/HCPCS: 36415; 80053; 80307; 81003; 84443; 85025; 96365; 99284-25; A9270; G0480; J3411; J7030; J7121